=== PATIENT | female | born 1985 ===

== ENCOUNTER 2020-11-19 15:00 | Inpatient (IN) ==
[2020-11-19] MEDS ORDERED: miSOPROStoL 200 MCG TABLET VAG PRN (15:06)
[2020-11-19] MEDS ORDERED: MEPERIDINE 50 MG/1 ML VIAL IV PRN (15:06)
[2020-11-19] MEDS ORDERED: BUTORPHANOL 2 MG/ML VIAL IV PRN (15:06)
[2020-11-19] MEDS ORDERED: ONDANSETRON 4 MG/2 ML VIAL IV PRN ×2 (15:06→17:07)
[2020-11-19] MEDS ORDERED: OXYTOCIN/LR 30 UNIT/1,000 ML BAG IV ONE (15:08)
[2020-11-19] MEDS ORDERED: AMPICILLIN 2,000 MG VIAL IV SCH (15:30)
[2020-11-19] MEDS ORDERED: AMPICILLIN 2,000 MG VIAL IM SCH (15:30)
[2020-11-19] MEDS ORDERED: AMPICILLIN INJ 2,000 MG in SODIUM CHLORIDE 0.9% 100 ML IV SCH ×2 (15:30→21:30)
[2020-11-19] MEDS ORDERED: LACTATED RINGERS 1,000 ML IV SCH (15:30)
[2020-11-19 16:36] VITALS: BP 122/56
[2020-11-19] MEDS ORDERED: RHO(D) IMMUNE GLOBULIN 300 MCG SYRINGE IM ONE (17:07)
[2020-11-19] MEDS ORDERED: HYDROCORTISONE 2.5% RECTAL CREAM 30 GM TUBE TOP PRN (17:07)
[2020-11-19] MEDS ORDERED: BENZOCAINE 20%/MENTHOL 0.5% SPRAY 56 GM CAN TOP PRN (17:07)
[2020-11-19] MEDS ORDERED: WITCH HAZEL PADS 100/JAR TOP PRN (17:07)
[2020-11-19] MEDS ORDERED: IBUPROFEN 800 MG TABLET PO PRN (17:07)
[2020-11-19] MEDS ORDERED: OXYTOCIN/LR 20 UNIT/1,000 ML BAG IV ONE (17:07)
[2020-11-19] MEDS ORDERED: MEASLES/MUMPS/RUBELLA VACCINE 0.5 ML VIAL SUBCUT ONE (17:07)
[2020-11-19] MEDS ORDERED: oxyCODONE/ACETAMINOPHEN 5-325 MG TABLET PO PRN ×2 (17:07)
[2020-11-19] MEDS ORDERED: ACETAMINOPHEN 325 MG TABLET PO PRN (17:07)
[2020-11-19] MEDS ORDERED: DIPH/TET/ACEL PERT BOOSTER VACCINE 0.5 ML VIAL IM ONE (17:07)
[2020-11-19] MEDS ORDERED: BISACODYL 10 MG SUPP RECTAL PRN (17:07)
[2020-11-19] MEDS ORDERED: LANOLIN 50% CREAM 0.3 OZ TUBE TOP PRN (17:07)
[2020-11-19] MEDS ORDERED: DOCUSATE SODIUM 100 MG CAPSULE PO SCH (21:00)
[2020-11-19] MEDS ORDERED: AMPICILLIN 2,000 MG VIAL ONE (21:20)
[2020-11-19] MEDS: AMPICILLIN INJ 2,000 MG in SODIUM CHLORIDE 0.9% 100 ML IV SCH (21:30)
[2020-11-20] MEDS: AMPICILLIN INJ 2,000 MG in SODIUM CHLORIDE 0.9% 100 ML IV SCH (03:30)
[2020-11-20 06:28] LABS: Basophils % 0.4 % (0.0-0.8); Eosinophils # 0.3 10*3/uL (0.0-0.87); Eosinophils % 2.8 % (0.00-10.9); Hematocrit 25.5 VOL% (35.7-47.0); Hemoglobin 8.4 GM/DL (12.0-16.0); Immature Granulocytes % 0.5 %; Immature Granulocytes Absolute 0.05 #; Lymphocytes # 1.5 10*3/uL (1.4-4.0); Lymphocytes % 14.5 % (21.3-54.2); Mean Corpuscular HGB Conc 32.9 GM/DL (32-36); Mean Corpuscular Volume 87.9 FL (87-102); Mean Platelet Volume 9.8 FL (9.6-12.0); Monocytes % 3.3 % (1.7-12.7); Neutrophils % 78.5 % (38.7-73.9); Platelet Count 216 T/CUMM (130-400); Red Cell Distribution Width 15.9 % (9.3-17.3); White Blood Count 10.5 T/CUMM (4-12)
[2020-11-20] MEDS ORDERED: INFLUENZA VIRUS VACCINE 0.5 ML SYRINGE IM ONE (09:00)
== END 2020-11-20 15:35 | disposition home or self-care (01) | DRG 779 ==
LOC: N.LDOUT 15:00 → N.LD 15:02
PROVIDERS: ADMIT Obstetrics & Gynecology; ATTEND Obstetrics & Gynecology